=== PATIENT | female | born 1975 | race Caucasian/White ===

== ENCOUNTER → 2016-06-28 | Outpatient (CLI) | payer MEDICARE, OTHER ==
[~2016-06-28] MED LIST: ATIVAN PO; BACTRIM DS TABL1 TA1 PO; BACTROBAN22 GM TP; CABERGOLINE0.5 MG PO; COSOPT OU; DEPAKOTE ER250 MG PO; DESONIDE15 GM TP; DIVALPROEX SOD125 M1 PO; DORZOLAMIDE-TIM10 ML OP; FLUOXETINE HCL40 MG PO; GEODON80 MG PO; HYDROCHLOROTH12.5 M1 PO; LEVOXYL75 MCG PO; OLANZAPINE10 MG PO; OMEPRAZOLE20 M1 PO; POLYETHYLENE GL90 GM MC; PROVERA10 MG PO; SENNA8.6 M2 PO; VERAMYST10 GM NS; VITAMIN D50000 UNIT PO; XALATAN OU
--- NOTE | ~2016-06-28 | US98 ---
[facility] A Service of [facility] & [facility] RADIOLOGY TEXT RESULTS PATIENT: HEIDI STEPHEN LOCATION: [facility] : [birth year] UNIT #: [id number] AGE: [address]: ANGE PIERRE SEX: F ORDER DR: [id number] [facility] [address] [place], [place] [address] [id number] O MR#: [id number] Acc #: [id number] NAME: HEIDI STEPHEN : 1975 SEX: F STUDY DATE/TIME: 06/28/2016 13:33 UNIT: [facility] ROOM: STUDY DESCRIPTION: US Pelvic Non-OB Complete Attending Physician: Ange Pierre M.D. Referring Physician: Tyler May M.D. Ordering Physician: Ange Pierre M.D. Primary Care Physician: Tyler May M.D. MEDICAL IMAGING REPORT This report is preliminary unless electronic signature is present EXAM Pelvic ultrasound 06/28/2016 INDICATIONS Dysfunctional uterine bleeding and increasing in frequency for the last 2 months. TECHNIQUE Transabdominal and transvaginal imaging was performed of the pelvis in multiple planes. Transvaginal imaging is performed for better evaluation of the endometrium adnexa. COMPARISON STUDIES No comparison. FINDINGS Uterus measures about 8.7 x 3.6 x 5.6 cm. Endometrial stripe measures within normal limits for thickness at about 8 mm but the stripe does appears somewhat heterogeneous. It appears mildly thickened in the lower uterine segment as well. Findings are nonspecific. There is some fluid in the lower uterine segment. There are multiple bilateral ovarian cysts. Dominant follicle on the left measures about 13 mm in size. I believe the dominant follicle on the right has an inaccurate measurement but probably measures at least 13 mm in size as well. There is a small amount of free fluid in the cul-de-sac which may be physiologic. IMPRESSION 1. There are small bilateral ovarian follicular cysts. The ovaries are otherwise within normal limits and show perfusion by Doppler. No adnexal masses. 2. Endometrial stripe does appear of normal thickness but has a slightly irregular contour. Some of this may be due to artifact. Significance of this finding is unknown. Given the history of STS. [facility] A Service of [facility] & [facility] RADIOLOGY TEXT RESULTS PATIENT: HEIDI STEPHEN LOCATION: [facility] : 71 UNIT #: [id number] AGE: [address]: ANGE PIERRE SEX: F ORDER DR: abnormal bleeding, MRI may be beneficial for follow up if further imaging is needed. 3. Trace amount of free fluid in the cul-de-sac is likely physiologic. Dictated by... Shon Ordaz Jr., M.D. THIS IS AN ELECTRONICALLY VERIFIED REPORT Shon Ordaz Jr., M.D. at 07/01/2016 10:30 PM DAMARI/doni TD: 07/01/2016 18:34 JOB #: [id number] MEDICAL IMAGING REPORT COPY
== END | disposition home or self-care (01) ==
LOC: CWCC 13:13
DX: N93.9 Abnormal uterine and vaginal bleeding, unspecified (principal); N83.02 Follicular cyst of left ovary; N83.01 Follicular cyst of right ovary
CPT/HCPCS: 76830; 76856

== ENCOUNTER → 2016-12-06 | Outpatient (CLI) | payer MEDICARE, OTHER ==
--- NOTE | ~2016-12-06 | MY30 ---
[facility] A Service of [facility] RADIOLOGY TEXT RESULTS PATIENT: HEIDI STEPHEN LOCATION: [facility] : 71 UNIT #: [id number] AGE: [address]: HEIDE HARRINGTON APRN SEX: F ORDER DR: [id number] [address] [address] [id number] O MR#: [id number] Acc #: [id number] NAME: HEIDI STEPHEN : 1975 SEX: F STUDY DATE/TIME: 12/06/2016 10:15 UNIT: [facility] ROOM: STUDY DESCRIPTION: MY SCREEN ORLIN BILAT DIGITAL Attending Physician: Heide Harrington Aprn Referring Physician: Heide Harrington Aprn Ordering Physician: Heide Harrington Aprn Primary Care Physician: Tyler May M.D. MEDICAL IMAGING REPORT This report is preliminary unless electronic signature is present. EXAM Bilateral digital screening mammogram with CAD DATE 12/06/2016 HISTORY 41-year-old female with family history of breast cancer in her mother at the age 40. No personal history of breast cancer or current complaints. COMPARISON Bilateral screening mammogram 11/03/2015, 09/30/2014, 11/04/2011. FINDINGS CC and MLO views were obtained of each breast utilizing digital technique and reviewed with an FDA-approved CAD device. Extremely dense fibroglandular tissue is present bilaterally which can limit sensitivity of mammography. No new or suspicious nodule is seen. There are loose nonclustered calcifications within the upper outer left breast which appear to have developed since 2014 but have a benign appearance. No architectural distortion. IMPRESSION BIRADS 2. Benign findings. Routine bilateral screening mammogram recommended in 1 year. Patients over the age of 40 are entered into a reminder system with target due date for the next mammogram. A result letter will also be sent to the patient. BIRADS: 2, benign findings. [facility] A Service of [facility] & [facility] RADIOLOGY TEXT RESULTS PATIENT: HEIDI STEPHEN LOCATION: [facility] : 71 UNIT #: [id number] AGE: [address]: HEIDE HARRINGTON APRN SEX: F ORDER DR: Dictated by... Brittany Cummins M.D. THIS IS AN ELECTRONICALLY VERIFIED REPORT Brittany Cummins M.D. at 12/11/2016 3:26 PM KALYN/micky TD: 12/06/2016 22:33 JOB #: [id number] MEDICAL IMAGING REPORT Page 1 of 1
== END | disposition home or self-care (01) ==
LOC: SMAM 09:24
DX: Z12.31 Encounter for screening mammogram for malignant neoplasm of breast (principal); Z80.3 Family history of malignant neoplasm of breast
CPT/HCPCS: G0202

== ENCOUNTER → 2016-12-30 | Outpatient (CLI) | payer MEDICARE, OTHER ==
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
== END | disposition home or self-care (01) ==
LOC: SRAD 15:14
DX: S89.92XA Unspecified injury of left lower leg, initial encounter (principal)
CPT/HCPCS: 73560